=== PATIENT | male | born 1970 | race Caucasian/White ===

== ENCOUNTER 2022-11-25 10:39 | Emergency (ER) | payer OTHER, SELFPAY ==
[2022-11-25 11:21] VITALS: BP 156/94; PULSE 93; RESP 18; TEMP 36.1; O2SAT 98
--- NOTE | 2022-11-25 12:07 | ED.URI ---
HPI - URI/Sore Throat General Chief Complaint: Upper Respiratory Infection Stated Complaint: sorethroat Time Seen by Provider: 11/25/22 12:07 Source: patient Mode of arrival: ambulatory Limitations: no limitations History of Present Illness HPI Narrative: 52-year-old male presents with complaint of congestion, sore throat for 5-6 days. Afebrile. Complaining of postnasal drainage. Is taking Margot-D. Also using throat lozenges. States throat is getting progressively worse. Is concerned he has strep throat. Denies nausea vomiting diarrhea. All systems reviewed and negative except as noted above. Related Data Home Medications Medication Instructions Recorded Confirmed No Home Medications 11/25/22 11/25/22 Allergies Allergy/AdvReac Type Severity Reaction Status Date / Time No Known Allergies Allergy Verified 11/25/22 11:39 Review of Systems Review of Systems: CONSTITUTIONAL: Denies fever, chills, or sweats. EYES: Denies visual changes, redness, or discharge. ENT: reports rhinorrhea, congestion, sore throat . Denies otalgia. CARDIOVASCULAR: Denies chest pain, palpitations, or edema. RESPIRATORY: Denies cough or dyspnea. GASTROINTESTINAL: Denies abdominal pain, nausea, vomiting, or diarrhea. GENITOURINARY: Denies dysuria or hematuria. SKIN: Denies rash or itching. MUSCULOSKELETAL: Denies back pain, joint pain, or myalgia. NEUROLOGIC: Denies headache, numbness, or weakness. PSYCHIATRIC: Denies anxiety or depression. All other systems reviewed are negative, except as documented in HPI. PMFSH Comments At time of signature, agree with nursing past medical, surgical, social and family history. There is no relevant family history pertinent to the presenting complaint. Exam Narrative: GENERAL: This is a well-nourished, well-developed patient, in no apparent distress. HEAD: normocephalic, atraumatic. EYES: PERRL. Sclera clear/white. Vision is grossly intact. EARS: External ears normal, auditory canals clear and without drainage, TMs normal without perforation. Hearing grossly intact. NOSE: External nose normal with Clear nasal drainage, erythema to both nares. THROAT: Mucous membranes moist, mild erythema posterior pharynx with clear postnasal drainage. NECK: Neck supple, non-tender without lymphadenopathy, masses or thyromegaly. CARDIOVASCULAR: Regular rate and rhythm without murmurs, gallops, or rubs. RESPIRATORY: Clear to auscultation. Breath sounds equal bilaterally. No wheezes, rales, or rhonchi. SKIN: warm, Dry, intact with no suspicious lesions or rash, good texture and turgor. NEURO: awake, alert, and oriented to person, place and time. There were no obvious focal neurologic abnormalities. EXTREMITIES: No joint tenderness, effusion, or edema noted. Course Course Level of Care: Express Care Visit Vital Signs Vital signs: Vital Signs Temperature 36.1 C L 11/25/22 11:21 Pulse Rate 93 11/25/22 11:21 Respiratory Rate 18 11/25/22 11:21 Blood Pressure 156/94 H 11/25/22 11:21 Pulse Oximetry 98 11/25/22 11:21 Oxygen Delivery Room Air 11/25/22 11:21 Temperature 36.1 C L 11/25/22 11:21 Pulse Rate 93 11/25/22 11:21 Respiratory Rate 18 11/25/22 11:21 Blood Pressure 156/94 H 11/25/22 11:21 Pulse Oximetry 98 11/25/22 11:21 Oxygen Delivery Room Air 11/25/22 11:21 Reviewed MDM - URI/Sore Throat MDM Narrative Medical decision making narrative: Patient is aware of diagnosis, understands and agrees to treatment plan. Anticipatory guidance given. Patient agrees to follow-up as directed and is aware of reasons to seek care at the emergency department. Portions of this record may have been created with voice recognition software Differential Diagnosis Differential diagnosis: Likely upper respiratory infection, sinusitis, viral infection and pharyngitis Lab Data Labs: Strep Screen Presumptive Negative *(Re
== END 2022-11-25 12:14 | disposition home or self-care (01) ==
PROVIDERS: Emergency Provider Nurse Practitioner Family
DX: J02.9 Acute pharyngitis, unspecified (principal); J01.90 Acute sinusitis, unspecified
CPT/HCPCS: 87081; 87880; 99203; G0463